=== PATIENT | male | born 2000 | race Two or more races ===

== ENCOUNTER 2024-11-27 03:46 | Outpatient (CLI) | payer SELFPAY | END 2024-11-27 03:47 | disposition home or self-care (01) | LOC: AMB 12-06 02:27 | PROVIDERS: Visit Provider Family Medicine | DX: F10.129 Alcohol abuse with intoxication, unspecified (principal) | CPT/HCPCS: A0425; A0429 ==

== ENCOUNTER 2024-11-27 04:21 | Emergency (ER) | payer OTHER, SELFPAY ==
[2024-11-27 04:30] VITALS: O2SAT 99
[2024-11-27 04:35] VITALS: BP 141/83; PULSE 89; RESP 18; TEMP 36.7; O2SAT 99; BMI 28.3
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
[2024-11-27 05:32] LABS: Basophils Absolute Auto 0.05 K/uL (0.00-0.30); Eosinophils Absolute Auto 0.03 K/uL (0.00-0.50); Eosinophils Percent Auto 0.6 % (0.0-7.0); Hematocrit 46.4 % (37.0-53.0); Hemoglobin* 15.7 gm/dL (13.5-17.5); Immature Granulocytes Abs Auto 0.01 K/uL (0.00-0.30); Immature Granulocytes Pct Auto 0.2 %; Lymphocytes Absolute Auto 1.94 K/uL (0.90-2.90); Lymphocytes Percent Auto 38.6 % (20-44); Mean Corpuscular HGB Conc 34 gm/dL (32-36); Mean Corpuscular Hemoglobin 30 pg (26-34); Mean Corpuscular Volume 89 fL (80-100); Monocytes Percent Auto 6.6 % (0.0-11.0); Neutrophils Absolute Auto 2.66 K/uL (1.7-7.0); Platelet Count* 193 K/uL (140-440); Red Blood Count 5.23 m/uL (4.30-5.90); White Blood Count* 5.02 K/uL (4.50-11.00)
[2024-11-27 05:33] LABS: Slide Review Reflex No
[2024-11-27 05:40] LABS: Chloride* 111 mmol/L (96-114); Potassium* 3.9 mmol/L (3.6-5.1); Sodium* 146 mmol/L (135-149)
[2024-11-27 05:43] LABS: Anion Gap 12 mEq/L (7-15); Blood Urea Nitrogen* 13 mg/dL (5-24); Calcium* 8.9 mg/dL (8.4-10.6); Carbon Dioxide* 23 mmol/L (20-32); Creatinine* 1.2 mg/dL (0.5-1.5); Est. Creatinine Clearance* 81.15; Estimated Glomerular Filt Rate 86 ml/min; Glucose* 103 mg/dL (60-115)
[2024-11-27 06:23] LABS: Ethanol* 0.28 % (0.01-0.03)
[2024-11-27 06:26] VITALS: BP 135/78; PULSE 85; RESP 18; TEMP 36.7; O2SAT 99
== END 2024-11-27 10:49 | disposition home or self-care (01) ==
LOC: ED 07:44
PROVIDERS: Emergency Provider Emergency Medicine
DX: F10.129 Alcohol abuse with intoxication, unspecified (principal); V49.3XXA Car occupant (driver) (passenger) injured in unspecified nontraffic accident, initial encounter
CPT/HCPCS: 36415; 70450; 71045; 72125; 76604; 76705; 80048; 81001; 82077; 85025; 93308; 94761; 99284